=== PATIENT | female | born 1970 | race African-American/Black ===

== ENCOUNTER 2025-02-21 15:31 | Emergency (ER) | payer MEDICAID ==
[~2025-02-21] VITALS: Ht 182.9 cm; Wt 97.7 kg
[2025-02-21 15:36] VITALS: BP 146/88; PULSE 88; RESP 18; TEMP 98.2; O2SAT 99
[2025-02-21] MEDS ORDERED: IBUP-45 PO (15:38)
[2025-02-21] MEDS: IBUPROFEN 600 MG TABLET PO ONE (16:11)
[2025-02-21] MEDS ORDERED: IBUP-1492 PO (18:19)
== END 2025-02-21 18:38 | disposition home or self-care (01) ==
LOC: EMS 15:31
DX: S93.401A Sprain of unspecified ligament of right ankle, initial encounter (principal); Z85.3 Personal history of malignant neoplasm of breast; Z79.899 Other long term (current) drug therapy; X58.XXXA Exposure to other specified factors, initial encounter; Y93.01 Activity, walking, marching and hiking; Y92.89 Other specified places as the place of occurrence of the external cause; Y99.8 Other external cause status
CPT/HCPCS: 99283